=== PATIENT | male | born 1960 | race Caucasian/White ===

== ENCOUNTER → 2024-02-10 11:54 | Outpatient (REF) | payer BC, SELFPAY ==
[2024-02-10 15:40] LABS: PSA, Total - Diagnostic 3.95 ng/ml (0.0-4.0)
== END ==
LOC: HWLAB 11:54
PROVIDERS: ATTENDING PHYSICIAN Urology; FAMILY PHYSICIAN Internal Medicine
DX: R97.20 Elevated prostate specific antigen [PSA] (principal)
CPT/HCPCS: 36415; 84153

== ENCOUNTER → 2024-07-02 06:05 | Outpatient (REF) | payer BC, SELFPAY ==
[2024-07-02 10:11] LABS: ALT (SGPT) 30 U/L (0-50); AST (SGOT) 27 U/L (17-59); Albumin 4.6 g/dl (3.5-5.0); Alkaline Phosphatase 56 U/L (38-126); Blood Urea Nitrogen 18 mg/dl (9-20); Calcium 9.4 mg/dl (8.4-10.2); Carbon Dioxide 31 mmol/L (22-30); Chloride 102 mmol/L (98-107); Glucose 87 mg/dl (70-99); HDL Cholesterol 54 mg/dl; LDL Cholesterol, Calculated 85 mg/dl; Potassium 4.4 mmol/L (3.5-5.1); Sodium 142 mmol/L (135-145); Total Bilirubin 0.7 mg/dl (0.2-1.3); Total Cholesterol 167 mg/dl (50-199); Triglyceride 141 mg/dl (10-149); Very Low Density Lipoprotein 28 mg/dl (0-30); eGFR > 60.00
[2024-07-02 10:27] LABS: Glycohemoglobin (HgbA1c) 5.4 % (4.0-5.6)
[2024-07-02 10:39] LABS: TSH 2.94 uIU/ml (0.47-4.68)
== END ==
LOC: HWLAB 06:05
PROVIDERS: ATTENDING PHYSICIAN Internal Medicine
DX: E78.00 Pure hypercholesterolemia, unspecified (principal); R73.9 Hyperglycemia, unspecified
CPT/HCPCS: 36415; 80053; 80061; 83036; 84443

== ENCOUNTER → 2024-09-04 13:22 | Outpatient (REF) | payer BC, SELFPAY ==
[2024-09-04 16:37] LABS: PSA, Total - Diagnostic 4.17 ng/ml (0.0-4.0)
== END ==
LOC: HWLAB 13:22
PROVIDERS: ATTENDING PHYSICIAN Urology; FAMILY PHYSICIAN Internal Medicine
DX: R97.20 Elevated prostate specific antigen [PSA] (principal)
CPT/HCPCS: 36415; 84153

== ENCOUNTER → 2025-02-12 13:00 | Outpatient (REF) | payer BC, SELFPAY ==
[2025-02-12 16:43] LABS: PSA, Total - Diagnostic 4.94 ng/ml (0.0-4.0)
== END ==
LOC: HWLAB 13:00
PROVIDERS: ATTENDING PHYSICIAN Urology; FAMILY PHYSICIAN Internal Medicine
DX: R97.20 Elevated prostate specific antigen [PSA] (principal)
CPT/HCPCS: 36415; 84153